=== PATIENT | female | born 1965 | race Caucasian/White ===

== ENCOUNTER 2017-06-08 16:31 | Emergency (ER) | payer BC, MEDICAID ==
[~2017-06-08] VITALS: Ht 157.5 cm; Wt 77.0 kg
[~2017-06-08 16:31] MED LIST: ALPR1CON PO; SYNT100T PO
[2017-06-08 16:32] VITALS: BP 135/84; PULSE 84; RESP 15; TEMP 98.2; O2SAT 98
--- NOTE | 2017-06-08 17:12 | PD ---
Physical Exam Time Seen by Provider: 17:11 Narrative 52 y/o female here with L shoulder pain after a fall on 05/08, worse today. Vital signs reviewed. Seen at triage desk. Awaiting bed placement. Data Data Last Documented VS Vital Signs Date Time Temp Pulse Resp B/P Pulse Ox O2 Delivery O2 Flow Rate FiO2 06/08/17 16:32 98.2 84 15 135/84 98 MDM Medical Record Reviewed: Yes Supervised Visit with ARTHUR: Marvin Al Jun 08, 2017 17:12
[2017-06-08] MEDS ORDERED: GABA100C4 PO (17:22)
[2017-06-08] MEDS ORDERED: SYNT175T PO (17:22)
[2017-06-08] MEDS ORDERED: CALC0.25 PO (17:22)
[2017-06-08] MEDS ORDERED: LEXA20TA PO (17:22)
[2017-06-08] MEDS: IBUPROFEN 800 MG TAB PO ONE ×2 (17:30→17:34)
--- NOTE | 2017-06-08 17:37 | PD ---
HPI Chief Complaint: Injury Time Seen by Provider: 17:31 Travel History International Travel<30 days: No Contact w/Intl Traveler<30days: No Traveled to known affect area: No History of Present Illness HPI 52-year-old female presents to the emergency Department with complaint of left shoulder pain after falling and fracturing her shoulder a month ago. She said her shoulders been getting better and then today she felt a "pop" and instant pain in the back of her shoulder that was excruciating. Denies new or recent injury. She did follow-up with orthopedic doctor, Dr. Sarah, and was told that the fracture was nonsurgical and would heal on its own. According to the patient her insurance changed and the orthopedic doctor would no longer see her after that. She reports paresthesias to bilateral hands and feet that is unchanged. Otherwise denies loss of sensation to the affected extremity. Reports decreased range of motion at the shoulder that is less than it was yesterday. Denies fever, vomiting. Has not taken any medications or tried any treatments to alleviate her symptoms today. Allergies to morphine. Symptoms are mild in severity. Has no other medical complaints. No other modifying factors or associated signs and symptoms. PFSH Past Medical History Asthma: Yes Anxiety: Yes Diminished Hearing: No Genitourinary: Yes (UTERINE CYST REMOVAL) Thyroid Disease: Yes ?: Not Menopausal: Yes : 2 Para: 2 Tubal Ligation: Yes Past Surgical History Abdominal Surgery: Yes (APPENDECTOMY) Appendectomy: Yes Gynecologic Surgery: Yes (UTERINE TUMOR EXCISION) Social History Alcohol Use: No Tobacco Use: Yes (1 PPD) Substance Use: No (HX OF OPIATE ABUSE) Allergies-Medications (Allergen,Severity, Reaction): Coded Allergies: Morphine (Verified Allergy, Severe, HIVES, 06/08/17) Reported Meds & Prescriptions Reported Meds & Active Scripts Active Lortab (Hydrocodone-Acetaminophen) 5-325 Mg Tab 1 Tab PO Q4H PRN Reported Gabapentin 100 Mg Cap 100 Mg PO TID Lexapro (Escitalopram Oxalate) 20 Mg Tab 20 Mg PO DAILY Synthroid (Levothyroxine Sodium) 175 Mcg Tab 175 Mcg PO DAILY Calcitriol 0.25 Mcg Cap 0.75 Mcg PO DAILY Review of Systems Except as stated in HPI: all other systems reviewed are Neg Physical Exam Narrative GENERAL: Well-nourished, well-developed female patient, in no acute distress SKIN: Warm and dry. HEAD: Atraumatic. Normocephalic. EYES: Pupils equal and round. No scleral icterus. No injection or drainage. ENT: Mucosa pink and moist. Airway patent. NECK: Supple. Trachea midline. CARDIOVASCULAR: Regular rate. RESPIRATORY: No accessory muscle use. GASTROINTESTINAL: Flat. MUSCULOSKELETAL: No obvious deformities. No clubbing. No cyanosis. No edema. Shoulders equal. Left shoulder with limited range of motion; less than 45 abduction; left shoulder with no obvious deformities; without erythema, edema, ecchymosis; tenderness on palpation to the posterior lateral aspect. 5/5 strength. Left upper extremity supple and non-tense. 3+ radial pulse and sensory intact. NEUROLOGICAL: Awake and alert. Oriented 3. No obvious cranial nerve deficits. Motor grossly within normal limits. Normal speech. PSYCHIATRIC: Appropriate mood and affect; insight and judgment normal. Data Data Last Documented VS Vital Signs Date Time Temp Pulse Resp B/P Pulse Ox O2 Delivery O2 Flow Rate FiO2 06/08/17 16:32 98.2 84 15 135/84 98 Orders Ibuprofen (Motrin) (06/08/17 17:30) Shoulder, Limited(2vws) (06/08/17 17:29) Ice/Cold Pack (06/08/17 19:19) Splint Or Brace Apply/Monitor (06/08/17 19:19) Acetamin-Hydrocod 325-5 Mg (Blanco 5-325 (06/08/17 19:30) Mandatory Outpatient Referral (06/08/17 19:19) Sling And Swathe (06/08/17 ) [facility] Medical Decision Making Medical Screen Exam Complete: Yes Emergency Medical Condition: Yes Medical Record Reviewed: Yes Differential Diagnosis Shoulder strain, shoulder pain, healing fracture Narrative Course 52-year-old female with history of left shoulder fracture after a fall on July 09 with onset of a sharp pain in the shoulder today. Denies new or recent injury. Followed up with Dr. Sarah, orthopedic, and was told it was non- operative and will heal on its own. Has not followed up with the orthopedic again secondary to insurance changes, per the patient. Ibuprofen administered in the ER. Left shoulder x-ray ordered. 1900: Left shoulder x-ray concludes: Mildly displaced humeral neck fracture with avulsion of the greater tuberosity. 1904: Report given to Sumeet Van PA-C. See his note for final disposition. Scripts Hydrocodone-Acetaminophen (Lortab)5-325 Mg Tab1 Tab PO Q4H PRN (PAIN) #20 TAB Prov:Aly Chin MD 06/08/17 Kailey Waterman Jun 08, 2017 17:37 Med/Other Pt SpecificInfo: Prescription(s) given Disposition: 01 DISCHARGE HOME Condition: Stable Kailey Waterman Jun 08, 2017 17:37
--- NOTE | 2017-06-08 18:59 | RADRPT ---
EXAM DATE/TIME: 06/08/2017 18:00 [facility] COMPARISON: No previous studies available for comparison. INDICATIONS : Left shoulder pain increasing today, known shoulder fracture from fall. MEDICAL HISTORY : Previous fracture 1 month ago, increasing pain started today. SURGICAL HISTORY : None. ENCOUNTER: Initial ACUITY: 1 month PAIN SCORE: 8/10 LOCATION: Left shoulder. FINDINGS: There is a mildly displaced humeral neck fracture with avulsion of the greater tuberosity. No disloca tion. No other fractures are seen. CONCLUSION: 1. Mildly displaced humeral neck fracture with avulsion of the greater tuberosity. Sumeet Norton MD on June 08, 2017 at 18:56 Board Certified Radiologist. This report was verified electronically.
[2017-06-08] MEDS ORDERED: HYDR-3533 PO (19:19)
--- NOTE | 2017-06-08 19:24 | PD ---
Physical Exam Date Seen by Provider: Jun 08, 2017 Time Seen by Provider: 19:21 Data Data Last Documented VS Vital Signs Date Time Temp Pulse Resp B/P Pulse Ox O2 Delivery O2 Flow Rate FiO2 06/08/17 16:32 98.2 84 15 135/84 98 Orders Ibuprofen (Motrin) (06/08/17 17:30) Shoulder, Limited(2vws) (06/08/17 17:29) Ice/Cold Pack (06/08/17 19:19) Splint Or Brace Apply/Monitor (06/08/17 19:19) Acetamin-Hydrocod 325-5 Mg (Elizabeth 5-325 (06/08/17 19:30) Mandatory Outpatient Referral (06/08/17 19:19) MDM Medical Record Reviewed: Yes Supervised Visit with ARTHUR: No Interpretation(s) Last 24 hours Impressions Shoulder X-Ray 06/08/17 1724 Signed Impressions: Service Date/Time: Thursday, June 08, 2017 18:00 - CONCLUSION: 1. Mildly displaced humeral neck fracture with avulsion of the greater tuberosity. Sumeet Norton MD Differential Diagnosis MDM: High Differential diagnoses: Fracture, sprain, strain, dislocation, contusion, neurovascular injury Narrative Course Patient has a proximal humerus fracture with fracture of the greater trochanter. The patient was placed in a sling and swath Diagnosis Primary Impression: Fracture of humerus, proximal, left, closed Qualified Code: S42.295A - Other closed nondisplaced fracture of proximal end of left humerus, initial encounter Patient Instructions: General Instructions, Narcotic given in the ED Additional Instruction: Tylenol or ibuprofen as needed and as directed to reduce pain and inflammation Rest, ice, and compress extremity to decrease pain and inflammation Arm sling for support Avoid aggravating activity; increase activity as tolerated Follow-up with primary care provider Follow-up with orthopedics Return to the emergency department immediately with worsening symptoms Med/Other Pt SpecificInfo: Prescription(s) given Scripts Hydrocodone-Acetaminophen (Lortab)5-325 Mg Tab1 Tab PO Q4H PRN (PAIN) #20 TAB Prov:Aly Chin MD 06/08/17 Disposition: 01 DISCHARGE HOME Condition: Stable Sumeet Van Jun 08, 2017 19:24
[2017-06-08] MEDS ORDERED: ACETAMINOPHEN/HYDROcodone 325 MG/5 MG TAB PO ONE (19:30)
== END 2017-06-08 19:59 | disposition home or self-care (01) ==
LOC: NEPK 16:31
DX: S42.252A Displaced fracture of greater tuberosity of left humerus, initial encounter for closed fracture (principal); J45.909 Unspecified asthma, uncomplicated; F41.9 Anxiety disorder, unspecified; E07.9 Disorder of thyroid, unspecified; F17.200 Nicotine dependence, unspecified, uncomplicated; X50.9XXA Other and unspecified overexertion or strenuous movements or postures, initial encounter; Z79.899 Other long term (current) drug therapy
CPT/HCPCS: 29240; 73030